=== PATIENT | male | born 1975 | race Hispanic/Latino ===

== ENCOUNTER 2020-08-15 20:16 | Emergency (ER) | payer OTHER, SELFPAY ==
--- NOTE | ~2020-08-15 | XR_ITS ---
EXAMINATION: XR chest 1V portable DATE: 08/15/2020 21:15 INDICATION: Cough. TECHNIQUE: A single frontal view of the chest was obtained. COMPARISON: None. FINDINGS: A calcified right lung nodule is consistent with old granulomatous disease. No pleural effu maddison or pneumothorax. The heart size is normal. IMPRESSION: 1. No acute cardiopulmonary disease. Reviewed, dictated and finalized at location A.
[2020-08-15 20:18] VITALS: BP 166/91; PULSE 73; RESP 16; TEMP 36.4; O2SAT 97
--- NOTE | 2020-08-15 21:00 | ECG_ITS ---
Measurements Intervals [place] Rate: 56 P: 46 ID: [id number] QRS: -4 QRSD: 101 T: 32 QT: 425 QTc: 411 Interpretive Statements SINUS BRADYCARDIA INCOMPLETE RIGHT BUNDLE BRANCH BLOCK BORDERLINE ECG Electronically Signed On 08-16-2020 7:31:03 CDT by Leonides Kovacs D.O.
--- NOTE | 2020-08-15 21:00 | ED.URI ---
HPI - URI/Sore Throat General Chief Complaint: Upper Respiratory Infection Stated Complaint: cough Time Seen by Provider: 08/15/20 21:00 Source: patient and family Mode of arrival: ambulatory History of Present Illness HPI Narrative: Patient is a 44-year-old previously healthy male who presents for evaluation of cough. Patient states he has had a cough since around 5 PM this evening. He denies fever, but reports runny nose. He reports shortness of breath with walking. He reports cough with sputum production, he denies blood present in his sputum, and he denies wheezing. He reports mild headache. No myalgias. No nausea, vomiting, abdominal pain or diarrhea. He reports mild chest pain that occurs only with coughing. No chest pain currently. No current back or shoulder pain. No ripping or tearing sensation to the flanks. Patient denies recent sick contacts. He reports he is a [employer], he denies any COVID exposures. He denies any loss of taste of sense or smell. Related Data Allergies Allergy/AdvReac Type Severity Reaction Status Date / Time No Known Allergies Allergy Unverified 10/28/18 08:32 Review of Systems Review of Systems: Narrative: CONSTITUTIONAL: Denies fever, chills, or sweats. ENT: Reports rhinorrhea, congestion denies sore throat CARDIOVASCULAR: Denies current chest pain, palpitations, or edema. RESPIRATORY: Reports cough and intermittent shortness of breath, only with walking, denies shortness of breath currently GASTROINTESTINAL: Denies abdominal pain, nausea, vomiting, or diarrhea. GENITOURINARY: Denies dysuria or hematuria. SKIN: Denies rash or itching. MUSCULOSKELETAL: Denies back pain, joint pain, or myalgia. NEUROLOGIC: Denies headache, numbness, or weakness. [facility] Past Medical History Medical History (Updated 08/15/20 @ 22:47 by Oliva Grewal MD) No pertinent past medical history Social History Social History (Updated 08/15/20 @ 21:08 by Oliva Grewal MD) Smoking status: Current some day smoker Tobacco type: cigarettes Alcohol intake: never Substance use: never Living arrangements: with family Occupation/Education: occupation Additional occupation/education comments: [employer] Gender identity (if verbalized by the patient): Male Exam Narrative: Exam Narrative: GENERAL: Awake, alert, conversant HEAD: Normocephalic, atraumatic. EYES: PERRLA and EOMI. ENT: Nares clear, no rhinorrhea or epistaxis. Mucous membranes moist. NECK: Supple. CHEST: No respiratory distress, breathing even and non labored, no wheezing, no crackles, no chest wall tenderness HEART: Regular rate, sinus rhythm ABDOMEN:Non distended, non tender EXTREMITIES: Normal range of motion. No edema. SKIN: Warm, dry, no rash. NEURO:No focal deficits. Alert and oriented x3 Course Vital Signs Vital signs: Vital Signs Temperature 36.4 C L 08/15/20 20:18 Pulse Rate 73 08/15/20 20:18 Respiratory Rate 16 08/15/20 20:18 Blood Pressure 166/91 H 08/15/20 20:18 Pulse Oximetry 97 08/15/20 20:18 Temperature 36.4 C L 08/15/20 20:18 Pulse Rate 73 08/15/20 20:18 Respiratory Rate 16 08/15/20 20:18 Blood Pressure 166/91 H 08/15/20 20:18 Pulse Oximetry 97 08/15/20 20:18 MDM - URI/Sore Throat MDM Narrative Medical decision making narrative: Patient presented for evaluation of cough, rhinorrhea and shortness of breath. At the time of assessment, ABCs are intact and vital signs are stable. Patient is ambulatory without increased work of breathing, respiratory distress or any hypoxemia. Patient is otherwise well-appearing and is afebrile. Lungs are clear without evidence of wheezing or crackles to be suggestive of heart failure or COPD. Laboratory results are reassuring. Mild leukocytosis. No findings of consolidation or mass on chest x-ray. Patient reported some chest pain with coughing but no chest pain currently, thus I did obtain an EKG and initial troponin this patient has had
[2020-08-15 21:41] LABS: Basophils Absolute Auto 0.1 K/mm3 (0.0-0.1); Basophils Percent Auto 0.9 % (0.2-1.2); Eosinophils Absolute Auto 0.5 K/mm3 (0-0.3); Eosinophils Percent Auto 4.2 % (0-4.4); Hematocrit 42.1 % (42.0-52.0); Hemoglobin 14.2 g/dL (14.0-18.0); Immature Granulocyte Absolute 0.03 K/mm3 (0.00-0.031); Immature Granulocyte Percent A 0.3 % (0-0.5); Lymphocytes Absolute Auto 3.75 K/mm3 (0.9-3.2); Lymphocytes Percent Auto 33.4 % (18.3-44.2); Mean Corpuscular HGB Conc 33.7 g/dl (32-36); Mean Corpuscular Hemoglobin 29.8 pg (26-34); Mean Corpuscular Volume 88.4 fl (80-100); Mean Platelet Volume 9.6 fl (7.4-10.4); Monocytes Absolute Auto 0.9 K/mm3 (0.1-0.6); Monocytes Percent Auto 7.9 % (2.6-8.5); Neutrophils Percent Auto 53.3 % (45.5-73.1); Platelet Count Result 291 k/mm3 (150-375); Red Blood Count 4.76 M/mm3 (4.6-6.20); Red Cell Distribution Width 12.3 % (11.5-14.5); White Blood Count 11.2 K/mm3 (4.5-10.0)
[2020-08-15 21:49] LABS: Prothrombin Time 13.1 Seconds (11.1-14.7)
[2020-08-15 21:50] LABS: Partial Thromboplastin Time 45.8 SECONDS (22.3-36.8)
[2020-08-15 21:53] LABS: Anion Gap 6 mmol/L (8-16); Blood Urea Nitrogen 12 mg/dL (9-20); Calcium 8.9 mg/dL (8.4-10.2); Carbon Dioxide 25 mmol/L (22-30); Chloride 103 mmol/L (98-107); Estimated Glomerular Filt Rate > 60; Glucose 106 mg/dL (75-110); Potassium 3.4 mmol/L (3.4-5.0); Sodium 134 mmol/L (137-145)
[2020-08-15 22:28] LABS: Troponin I < 0.012 ng/mL (0.000-0.034)
[2020-08-16 12:25] LABS: SARS-CoV-2 RNA PCR Negative
== END 2020-08-15 23:02 | disposition home or self-care (01) ==
PROVIDERS: Emergency Provider Emergency Medicine; PCP Registered Nurse
DX: J06.9 Acute upper respiratory infection, unspecified (principal); B34.9 Viral infection, unspecified; Z20.828 Contact with and (suspected) exposure to other viral communicable diseases; R00.1 Bradycardia, unspecified; F17.210 Nicotine dependence, cigarettes, uncomplicated
CPT/HCPCS: 36415; 71045; 80048; 84484; 85025; 85610; 85730; 87635; 93005; 99284; C9803; U0003